=== PATIENT | female | born 1975 | race Asian ===

== ENCOUNTER → 2016-09-02 | Outpatient (CLI) | payer BC ==
[~2016-09-02] MED LIST: PRENTAB26 PO
--- NOTE | 2016-09-02 13:22 | Discharge Instructions ---
Discharge Instructions Procedure Procedure Date: Sep 02, 2016. Reason for visit: Right Calcs. Discharge Discharge Date: Sep 02, 2016. Discharge Diagnosis: status post breast biopsy Instructions Activity Recommendations: Additional Limitations (see below) Return to School/Work: no limitations Recommended Home Diet: No Limitations Provider Instructions: ACTIVITY RECOMMENDATIONS: * No lifting, pushing, pulling or exercising the affected side for three days. RETURN TO SCHOOL/WORK: * You may return to work/school after the procedure, but do not perform any strenuous activities for 24 to 48 hours. MEDICATIONS: * Tylenol (two 325 mg) every four to six hours if needed for mild pain (if not allergic to Tylenol). DIET: * Resume previous diet. SPECIAL CARE INSTRUCTIONS: * Keep biopsy site dry for 24 hours. May shower after 24 hours, but do not soak (bathe) incision. * May remove Tegaderm (plastic patch) tomorrow AFTER showering. * Leave the steri-strips on for one week. Allow the steri-strips to fall off by themselves. If not off after one week, you may remove them. You may place a Bandaid crosswise over the strips, if desired. * Apply ice 10 minutes on and 10 minutes off as needed. * Wear a bra at bedtime to sleep more comfortably for 2-3 days. * Your referring physician should have the results after approximately 5 to 7 business days. * Call for unusual bleeding, fever, drainage, etc or if you have any questions call during normal business hours or after hours call Dr Fan, . FOLLOW UP VISIT: Follow-up with Referring Physician as scheduled. Allergies Coded Allergies: Alcohol (Verified Allergy, Unknown, 10/03/09) Vicente Zuleta Recommendations: Call your doctor if: * Temperature above 101 degrees * Pain not relieved by pain medicine ordered * There is increased drainage or redness from any incision * You have any unanswered questions or concerns. Your Doctors Instructions noted above were prepared by provider Carine Fan. Patient Signature Section: Patient Instructions Signature Page Shwetha Horvath Patient (or Guardian) Signature/Date: I have read and understand the instructions given to me by my caregivers. Caregiver/RN/Doctor Signature/Date: The above-named patient and/or guardian has received patient instructions on this date. + Original Patient Signature Page (only) stays with chart. Please make copy for patient.
--- NOTE | 2016-09-02 13:45 | MAMMOGRAPHY REPORT ---
THIS REPORT HAS BEEN AMENDED. STEREOTACTIC GUIDED BIOPSY RIGHT BREAST: 09/02/2016 CLINICAL HISTORY: Indeterminate calcifications in the right upper outer quadrant. PATIENT CONSENT: The procedure, risks, benefits, and alternatives of stereotactic biopsy with clip p lacement were discussed with the patient, and verbal and written consent was obtained. A timeout wa s performed immediately prior to the procedure. PROCEDURE DESCRIPTION: With stereotactic guidance, aseptic technique, and lidocaine as a local anest hetic (1% lidocaine to anesthetize the skin and 1% lidocaine with epinephrine to anesthetize the sander per tissues), the area of concern was sampled multiple times with a 9-gauge vacuum-assisted biopsy n eedle (Suros Eviva petite). The path of approach was lateral. The specimen radiograph demonstrates calcifications to be present in the samples. A metallic marker clip was placed at the biopsy site. This was confirmed on postprocedure mammograms. Direct pressure was applied at the biopsy site an d hemostasis was readily achieved. The patient tolerated the procedure without complication. She w as given wound care instructions. COMPARISON: Comparison is made to exams dated: 08/27/2016 mammogram and 08/11/2016 mammogram - [facility]. IMPRESSION: STEREOTACTIC GUIDED BIOPSY Stereotactic biopsy of indeterminate calcifications in the right upper outer quadrant, with clip momo cement. The patient will receive pathology results from her referring physician. Carine Fan M.D. ah/:09/02/2016 13:26:36 Attending Technologist: Suzanne SHARIF(Jack)(M), [facility] Job Setter Honing: Jamila Fung, [facility] AMENDMENT: 09/15/2016 Carine Fan M.D. Pathology results from stereotactic biopsy of right breast calcifications was reviewed on 09/15/2016. The pathology shows benign breast tissue with microcalcifications, which is concordant with the im aging appearance. Recommend follow-up diagnostic mammograms of the left breast in 6 months to confi rm stability of the faint calcifications in the left upper outer quadrant.
--- NOTE | 2016-09-02 16:40 | MAMMOGRAPHY REPORT ---
UNILATERAL RIGHT DIGITAL DIAGNOSTIC MAMMOGRAM: 09/02/2016 CLINICAL HISTORY: Status post stereotactic biopsy of right upper outer quadrant calcifications. TECHNIQUE: Postprocedural right CC, XCCL, and ML views were obtained. COMPARISON: Comparison is made to exams dated: 08/27/2016 mammogram and 08/11/2016 mammogram - [facility]. BREAST COMPOSITION: The tissue of the right breast is extremely dense, which lowers the sensitivity of mammography. FINDINGS: A new biopsy marker clip is noted at the site of the biopsied calcifications in the right upper outer quadrant. No significant postbiopsy hematoma is seen. IMPRESSION: POST PROCEDURE IMAGING FOR MARKER PLACEMENT New biopsy marker clip status post stereotactic biopsy of right upper outer quadrant calcifications. Pathology results are pending. Approximately 10% of breast cancers are not detected with mammography. A negative mammographic repor t should not delay biopsy if a clinically suggestive mass is present. Carine Fan M.D. ah/:09/02/2016 13:45:07 Machine Wood Sander: Jamila Fung, [facility] BI-RADS Code: Post Procedure Imaging For Marker Placement
== END | disposition home or self-care (01) ==
LOC: C.MAMM 12:49
PROVIDERS: ATTEND Obstetrics & Gynecology
DX: R92.1 Mammographic calcification found on diagnostic imaging of breast (principal)

== ENCOUNTER → 2017-01-10 | Outpatient (CLI) | payer BC | END | disposition home or self-care (01) | LOC: C.PAPS 12:22 | PROVIDERS: ATTEND Obstetrics & Gynecology | DX: Z01.419 Encounter for gynecological examination (general) (routine) without abnormal findings (principal) ==

== ENCOUNTER → 2017-05-13 | Outpatient (CLI) | payer BC ==
--- NOTE | 2017-05-13 13:42 | MAMMOGRAPHY REPORT ---
UNILATERAL LEFT DIGITAL DIAGNOSTIC MAMMOGRAM TOMOSYNTHESIS WITH CAD: 05/13/2017 CLINICAL HISTORY: History of benign stereotactic biopsy of right breast calcifications August 2016, here for short interval follow-up of benign-appearing left breast calcifications. TECHNIQUE: Breast tomosynthesis in addition to standard 2D mammography was performed. Current study was also evaluated with a Computer Aided Detection (CAD) system. Left CC and MLO to Alecia tomosynthes is images and spot magnification left CC and ML views were obtained. COMPARISON: Comparison is made to exams dated: 09/02/2016 stereotactic biopsy, 09/02/2016 mammogram, mammogram, and 08/11/2016 mammogram - [facility]. BREAST COMPOSITION: The tissue of the left breast is extremely dense, which lowers the sensitivity o f mammography. FINDINGS: Spot magnification views of the left breast again demonstrate loosely grouped punctate doni gn-appearing calcifications within the left upper outer quadrant. The calcifications are stable on s pot magnification views dating back to the 08/27/2016 exam. Additionally, the calcifications appear similar to the biopsied calcifications in the right breast which yielded benign pathology. Given the benign morphology and stability, the calcifications are considered benign. The remainder of the left breast is stable compared to prior exams, without suspicious masses, calcif ications, or areas of architectural distortion noted. IMPRESSION: ACR BI-RADS CATEGORY 2: BENIGN Punctate benign-appearing calcifications in the left upper outer quadrant are stable, and are conside red benign given the stability and benign morphology. There is no mammographic evidence of malignanc y. Return to annual mammogram screening schedule is recommended, due July 2017. The patient has been verbally notified of the results. Approximately 10% of breast cancers are not detected with mammography. A negative mammographic report should not delay biopsy if a clinically suggestive mass is present. Carine Fan M.D. /:05/13/2017 11:34:56 Supervisor Fertilizer: Jamila SHARIF(Jack)(M), [facility] letter sent: Normal 1/2 BI-RADS Code: ACR BI-RADS Category 2: Benign
== END | disposition home or self-care (01) ==
LOC: C.MAMM 10:47
PROVIDERS: ATTEND Obstetrics & Gynecology
DX: Z09 Encounter for follow-up examination after completed treatment for conditions other than malignant neoplasm (principal); R92.1 Mammographic calcification found on diagnostic imaging of breast

== ENCOUNTER → 2017-07-20 | Outpatient (CLI) | payer BC ==
[2017-07-20 15:17] LABS: THYROID STIMULATING HORMONE 1.9 uIu/ml (0.300-4.500)
== END | disposition home or self-care (01) ==
LOC: C.LAB1850 11:21
PROVIDERS: ATTEND Obstetrics & Gynecology
DX: N93.9 Abnormal uterine and vaginal bleeding, unspecified (principal)

== ENCOUNTER → 2017-08-25 | Outpatient (CLI) | payer BC ==
--- NOTE | 2017-08-26 12:52 | MAMMOGRAPHY REPORT ---
BILATERAL DIGITAL SCREENING MAMMOGRAM TOMOSYNTHESIS WITH CAD: 08/25/2017 CLINICAL HISTORY: Routine screening. Patient has no complaints. TECHNIQUE: Breast tomosynthesis in addition to standard 2D mammography was performed. Current study was also evaluated with a Computer Aided Detection (CAD) system. COMPARISON: Comparison is made to exams dated: 05/13/2017 mammogram, 09/02/2016 mammogram, 09/02/2016 love reotactic biopsy, 08/27/2016 mammogram, and 08/11/2016 mammogram - [facility]. BREAST COMPOSITION: The tissue of both breasts is extremely dense, which lowers the sensitivity of m ammography. FINDINGS: No suspicious masses, calcifications, or areas of architectural distortion are noted in ei ther breast. There has been no significant interval change compared to prior exams. Benign-appearing calcifications and an associated biopsy marker clip in the right upper outer quadrant are stable com pared to prior exams, and yielded benign pathology on the stereotactic biopsy. Scattered benign-appe aring left breast calcifications are also stable. A linear scar marker denotes a scar in the right u pper outer breast. IMPRESSION: ACR BI-RADS CATEGORY 2: BENIGN There is no mammographic evidence of malignancy. A 1 year screening mammogram is recommended. The pa tient will receive written notification of the results. Approximately 10% of breast cancers are not detected with mammography. A negative mammographic report should not delay biopsy if a clinically suggestive mass is present. Carine Fan M.D. ah/:08/25/2017 15:57:03 Hotel Supplies Salesperson: Viola SHARIF(Jack)([place]), [facility] letter sent: Normal 1/2 BI-RADS Code: ACR BI-RADS Category 2: Benign
== END | disposition home or self-care (01) ==
LOC: C.MAMM 14:40
PROVIDERS: ATTEND Obstetrics & Gynecology
DX: Z12.31 Encounter for screening mammogram for malignant neoplasm of breast (principal)

== ENCOUNTER 2019-05-11 09:37 | Observation (INO) ==
--- OUTSIDE RECORDS SUMMARY | 2019-05-11 09:40 | External Medical Summary | Continuity of Care Document ---
:1975 Author Name Shady Ayala, Provider Address Unavailable Unavailable , Care Team Providers Name Role Phone Unavailable Unavailable Unavailable DESTINI FELIPE Unavailable Unavailable Unavailable Unavailable Unavailable Problems Atopic dermatitis (691.8) (L20.9) Abnormal finding on mammography (793.80) (R92.8) Breast pain (611.71) (N64.4) Abnormal uterine bleeding (AUB) (626.9) (N93.9) Well woman exam with routine gynecological exam (V72.31) (Z0 1.419) Inadequate cervical cytology sample (795.08) (R87.615) Allergies and Adverse Reactions No Known Drug Allergies (Allergy) Medications No Reported Medications , M.D. Refills: 0 Procedures Procedures not documented Immunizations Immunizations not documented Plan of Treatment Planned Observations Mammo SCREENING BILATERAL JOHN PAUL Start: 30-Aug-2019 Intent Results No Known Results Results not documented Encounters Appointment; Dominique León M.D. 08-Dec-2018 11:10 Encounter Diagnosis: Problem not documented Appointment; Dominique León M.D. 30-Nov-2018 9:20 Encounter Diagnosis: Problem not documented Appointment; Dominique León M.D. 20-Jul-2017 10:20 Encounter Diagnosis: Problem not documented Appointment; Dominique León M.D. 20-Jul-2017 10:20 Encounter Diagnosis: Problem not documented
[2019-05-11] MEDS ORDERED: ONDANSETRON INJ 2 MG/ML 2 ML VIAL IV STA (10:28)
[2019-05-11] MEDS ORDERED: MoRPHine SULFATE 4 MG/ML 1 ML CARP\\VIAL IV STA (10:28)
[2019-05-11] MEDS ORDERED: SODIUM CHLORIDE 0.9% 1000ML 1,000 ML IV SCH (10:29)
--- NOTE | 2019-05-11 10:34 | Emergency Department Note ---
History of Present Illness General Chief complaint: Abdominal Pain Stated complaint: RLQ PAIN Time Seen by Provider: 05/11/19 10:11 History of Present Illness Maximum Pain Intensity: 9 Patient is a healthy 43-year-old female who was referred to the emergency department by [facility] for evaluation of right lower quadrant abdominal pain that started last evening. Patient reports that she was feeling well and was in her usual state of health until around 10:00 last evening when she began to feel generally uncomfortable. It did not keep her from sleeping however. She woke this morning from sleep around 7:00 a sharp pain in the right lower quadrant that does not radiate. She states it is constant in nature and presently rates it a 9/10. She states that she feels better laying curled up with her knees and hips flexed and worse when her legs are straight. She notes primarily pain, with no associated nausea or vomiting. She denies any urinary symptoms. Last bowel movement was this morning was possible for her without blood or diarrhea. There was no change in her abdominal pain with the bowel movement. She was seen on campus and referred to the emergency department for possible appendicitis. Patient's last menstrual period was normal for her and ended 2 days ago. Home Medications Home Medications Medication Instructions Recorded Confirmed Type No Known Home Medications 05/11/19 05/11/19 History Allergies Allergy/AdvReac Type Severity Reaction Status Date / Time alcohol Allergy Unknown Verified 05/11/19 10:31 Past Med/Surg History Medical History No significant medical problems (Chronic) Surgical History No history of previous surgery (Chronic) Social History marital status: Current Living Situation: Family current occupational status: employed Feels Safe at Home: Yes Smoking Status: Never smoker Review of Systems A total of 10 systems reviewed and were otherwise negative Physical Exam Vital Signs Vital Signs - 24 hr 05/11/19 09:43 05/11/19 12:45 05/11/19 13:45 Temperature 36.9 C Temperature Source Oral Sepsis Recent Fever Within 48 Hours No Sepsis New/Unexplained Change in Mental Status No Sepsis Action Taken by Nursing No Action Required Pulse Rate 82 Pulse Rate [Apical] Pulse Rate [Right Finger] 66 90 Pulse Rhythm [Apical] Pulse Rhythm [Right Finger] Regular Pulse Strength [Apical] Pulse Strength [Right Finger] Normal Respiratory Rate 20 20 16 Respiratory Effort / Characteristics Non-Labored Spontaneous Respiratory Depth Normal Respiratory Pattern Regular Blood Pressure 146/90 H Blood Pressure [Right Arm] 130/75 145/80 H Blood Pressure Mean 108 Blood Pressure Mean [Right Arm] 93 101 Blood Pressure Position [Right Arm] Lying Pulse Oximetry 100 99 Oxygen Delivery Method Room Air Room Air Room Air 05/11/19 13:55 Temperature 37.3 C Temperature Source Oral Sepsis Recent Fever Within 48 Hours Sepsis New/Unexplained Change in Mental Status Sepsis Action Taken by Nursing Pulse Rate Pulse Rate [Apical] 82 Pulse Rate [Right Finger] Pulse Rhythm [Apical] Regular Pulse Rhythm [Right Finger] Pulse Strength [Apical] Normal Pulse Strength [Right Finger] Respiratory Rate 16 Respiratory Effort / Characteristics Non-Labored Spontaneous Respiratory Depth Normal Respiratory Pattern Regular Blood Pressure Blood Pressure [Right Arm] 114/75 Blood Pressure Mean Blood Pressure Mean [Right Arm] 88 Blood Pressure Position [Right Arm] Lying Pulse Oximetry 99 Oxygen Delivery Method Room Air CONSTITUTIONAL: Patient is a well-appearing 43-year-old female who is awake and alert and in no acute distress. EYES: Pupils equal, round, reactive to light and accommodation. EOMs intact without nystagmus. Sclera are anicteric. ENT: Tympanic membranes intact, with normal landmarks. External canals are clear. Oral and nasopharynx are clear. Mucous membranes are moist, no lesions, tongue and gums appear normal. CARDIOVASCULAR: Regular rate and rhythm, with normal S1 and S2, no murmur or gallop or rub is heard. Peripheral pulses easily palpable. RESPIRATORY: Breath sounds equal and clear to auscultation without wheezes, rales, or rhonchi heard. Full and equal chest expansion without accessory muscle use or retractions. ABDOMEN: Bowel sounds are present. Abdomen is soft, scaphoid, tender to percussion over the right lower quadrant. She is tender to palpation in the right lower quadrant with voluntary guarding, no rebound or referred rebound tenderness. INTEGUMENTARY: No lesions or rash, normal skin turgor. LYMPH: No lymphadenopathy. Course The patient was seen and assessed as above. Old records were reviewed. She was referred to the emergency department from an outpatient walk-in clinic for evaluation of right lower quadrant abdominal pain. IV lock was initiated. Laboratory studies were collected. CBC with differential, BMP, urinalysis and urine test were performed. Patient was made aware that she should not have anything to eat or drink while in the emergency department. She was agreeable to medication for discomfort and was given morphine 4 mg and Zofran 4 mg IV. She was given a liter bolus of normal saline solution. CT scan of the abdomen and pelvis with IV contrast was ordered. Laboratory studies noted a slightly elevated white count at 13,600 with left shift and bandemia noted. H&H is normal. Electrolytes and renal functions are within normal limits. Urinalysis notes trace blood and 5-10 epithelial cells, otherwise is clear. Urine test is negative. CT scan of the abdomen and pelvis noted the appendix to be distended and fluid- filled measuring up to 10 mm in thickness, appendiceal wall is thickened and hyperemic with periappendiceal inflammation and fluid. Findings are consistent with acute appendicitis. No organized fluid collection is seen to indicate abscess. All laboratory and diagnostic imaging studies were discussed with the patient and her spouse. She was made aware that the surgical team would be evaluating her. Laboratory and diagnostic imaging studies were discussed with the surgical team, Dr. Newman and Naatly Simon PA-C, and they will see the patient with plans for surgical intervention. Administered Medications Ioversol (Optiray 320 100ml) 93 ml IV ONCE PRN PRN Reason: Interaction Checking Stop: 05/15/19 12:31 Last Admin: 05/11/19 12:33 Dose: 93 ml Documented by: [id number] Discontinued Medications Sodium Chloride (Nss 1000ml) 1,000 mls @ 999 mls/hr IV .Q1H1M PRACHI Stop: 05/11/19 11:29 Last Infusion: 05/11/19 12:21 Dose: 0 mls/hr Documented by: [id number] Admin: 05/11/19 11:20 Dose: 999 mls/hr Documented by: [id number] Morphine Sulfate (Morphine Sulfate) 4 mg IV NOW STA Stop: 05/11/19 10:29 Last Admin: 05/11/19 11:29 Dose: Not Given Documented by: [id number] Ondansetron HCl (Zofran) 4 mg IV NOW STA Stop: 05/11/19 10:29 Last Admin: 05/11/19 11:20 Dose: 4 mg Documented by: [id number] Medical Decision Making Differential Diagnosis Differential diagnoses entertained included UTI, pyelonephritis, renal colic, appendicitis, shingles, musculoskeletal strain, hernia, , ectopic , PID, tubo-ovarian abscess, ovarian cyst, ovarian torsion, among others. Medical Records Attestation: I reviewed the patient's medical records. Home Medications Current Medication List: was personally reviewed by me Laboratory Data Attestation: I reviewed the patient's lab results. Result diagrams: 05/11/19 11:12 05/11/19 11:12 Lab Results 05/11/19 05/11/19 05/11/19 Range/Units 10:05 10:05 10:05 WBC (4.8-10.8) K/uL RBC (4.2-5.4) M/uL Hgb (12.0-16.0) g/dL Hct (37-47) % MCV (80-100) fL MCH (25-34) pg MCHC (32-36) g/dL RDW Std Deviation (36.4-46.3) fL RDW Coeff of Pradeep (11.5-14.5) % Plt Count (130-400) K/uL MPV (7.4-10.4) fL Immature Gran % (Auto) % Neut % (Auto) % Lymph % (Auto) % Owen % (Auto) % Eos % (Auto) % Baso % (Auto) % Immature Gran # (Auto) (0.00-0.02) K/uL Neut # (Auto) (1.4-6.5) K/uL Lymph # (Auto) (1.2-3.4) K/uL Owen # (Auto) (0.11-0.59) K/uL Eos # (Auto) (0-0.5) K/uL Baso # (Auto) (0-0.2) K/uL Sodium (136-145) mmol/L Potassium (3.5-5.1) mmol/L Chloride (98-107) mmol/L Carbon Dioxide (21-32) mmol/L Anion Gap (3-11) BUN (7-18) mg/dl Creatinine (0.6-1.2) mg/dl Est Cr Clr Drug Dosing ml/min Est GFR ( Amer) Est GFR (Non-Af Amer) BUN/Creatinine Ratio (10-20) Glucose (70-99) mg/dl Calcium (8.5-10.1) mg/dl Urine Color Yellow Urine Appearance Clear (Clear) Urine pH 8.0 H (4.5-7.5) Ur Specific [employer] 1.011 (1.000-1.030) Urine Protein Negative (Negative) Urine Glucose (UA) Negative (Negative) Urine Ketones Negative (Negative) Urine Blood Trace H (Negative) Urine Nitrite Negative (Negative) Urine Bilirubin Negative (Negative) Urine Urobilinogen Negative (Negative) Ur Leukocyte Esterase Negative (Negative) Urine WBC (Auto) 0 (0-5) /hpf Urine RBC (Auto) 0-4 (0-4) /hpf U Hyaline Cast (Auto) 0 (0-5) /lpf U Epithel Cells (Auto) 5-10 H (0-5) /lpf Urine Bacteria (Auto) Negative (Negative) Urine Test Negative (Negative) POC Ur Test Cancelled 05/11/19 05/11/19 Range/Units 11:12 11:12 WBC 13.62 H (4.8-10.8) K/uL RBC 4.40 (4.2-5.4) M/uL Hgb 13.4 (12.0-16.0) g/dL Hct 40.1 (37-47) % MCV 91.1 (80-100) fL MCH 30.5 (25-34) pg MCHC 33.4 (32-36) g/dL RDW Std Deviation 44.7 (36.4-46.3) fL RDW Coeff of Pradeep 13.5 (11.5-14.5) % Plt Count 257 (130-400) K/uL MPV 10.0 (7.4-10.4) fL Immature Gran % (Auto) 0.2 % Neut % (Auto) 86.9 % Lymph % (Auto) 7.4 % Owen % (Auto) 5.3 % Eos % (Auto) 0.1 % Baso % (Auto) 0.1 % Immature Gran # (Auto) 0.03 H (0.00-0.02) K/uL Neut # (Auto) 11.84 H (1.4-6.5) K/uL Lymph # (Auto) 1.01 L (1.2-3.4) K/uL Owen # (Auto) 0.72 H (0.11-0.59) K/uL Eos # (Auto) 0.01 (0-0.5) K/uL Baso # (Auto) 0.01 (0-0.2) K/uL Sodium 140 (136-145) mmol/L Potassium 3.7 (3.5-5.1) mmol/L Chloride 106 (98-107) mmol/L Carbon Dioxide 26 (21-32) mmol/L Anion Gap 8.0 (3-11) BUN 8 (7-18) mg/dl Creatinine 0.67 (0.6-1.2) mg/dl Est Cr Clr Drug Dosing 89.6 ml/min Est GFR ( Amer) 124.8 Est GFR (Non-Af Amer) 107.7 BUN/Creatinine Ratio 12.0 (10-20) Glucose 82 (70-99) mg/dl Calcium 8.7 (8.5-10.1) mg/dl Urine Color Urine Appearance (Clear) Urine pH (4.5-7.5) Ur Specific [employer] (1.000-1.030) Urine Protein (Negative) Urine Glucose (UA) (Negative) Urine Ketones (Negative) Urine Blood (Negative) Urine Nitrite (Negative) Urine Bilirubin (Negative) Urine Urobilinogen (Negative) Ur Leukocyte Esterase (Negative) Urine WBC (Auto) (0-5) /hpf Urine RBC (Auto) (0-4) /hpf U Hyaline Cast (Auto) (0-5) /lpf U Epithel Cells (Auto) (0-5) /lpf Urine Bacteria (Auto) (Negative) Urine Test (Negative) POC Ur Test Imaging Data Attestation: I personally reviewed and interpreted this imaging study as follows: Radiologist's Impression: CT SCAN OF THE ABDOMEN AND PELVIS WITH IV CONTRAST CLINICAL HISTORY: Right lower quadrant abdominal pain. COMPARISON STUDY: Renal ultrasound dated 01/26/2018. TECHNIQUE: Following the IV administration of 93 cc of Optiray 320, CT scan of the abdomen and pelvis is performed from the lung bases to the proximal femora. Images are reviewed in the axial, sagittal, and coronal planes. IV contrast was administered without complication. A dose lowering technique was utilized adhering to the principles of ALARA. CT DOSE: 297.36 mGycm FINDINGS: Lung bases: The heart is normal in size and without pericardial effusion. The lung bases are clear. Liver: The contrast-enhanced liver is normal in size, contour, and attenuation. There is no intrahepatic biliary ductal dilatation. The hepatic veins and portal veins are patent. Gallbladder: Unremarkable. Spleen: Normal in size and attenuation. Pancreas: Unremarkable. Adrenal glands: Unremarkable. Kidneys: The contrast enhanced kidneys are normal in size and without hydronephrosis. The kidneys enhance and excrete symmetrically. Abdominal vasculature: The abdominal aorta is normal in course and caliber. Bowel: There is no bowel obstruction. The appendix is distended and fluid- filled, measuring up to 10 mm in thickness. The appendiceal wall is thickened and hyperemic and there is periappendiceal inflammation and fluid. Findings are consistent with acute appendicitis. No organized fluid collection is seen to indicate abscess. Peritoneum: There is no intraperitoneal free air or abdominal ascites. There is a small fat-containing umbilical hernia. Lymphadenopathy: None. Pelvic viscera: The bladder, uterus, and adnexa are normal as imaged. There are small bilateral ovarian follicles. Trace free fluid is noted in the cul-de-sac. Skeletal structures: No lytic or blastic lesions are seen. IMPRESSION: 1. Findings are consistent with acute appendicitis. There is no evidence of abscess or perforation. 2. Trace nonspecific free fluid is seen in the cul-de-sac. Blood Pressure Blood Pressure Findings: Normal blood pressure Blood Pressure Disposition: did not require urgent referral MDM Narrative See ED Course. Impression & Plan Acute appendicitis Discharge Plan Visit Data Chief Complaint: Abdominal Pain Stated Complaint: RLQ PAIN ED Provider: Jered Esteves ED Midlevel Provider: Stanton Ro Discharge Problem: Acute appendicitis Patient Disposition: Being Evaluated by Surgeon Discharge Instructions Interventions: ED Discharge Assessment Last Done: 05/11/19 13:46 Discharge Problem: Acute appendicitis Qualifiers: Acute appendicitis type: with localized peritonitis Appendicitis gangrene presence: without gangrene Appendicitis perforation presence: without perforation Appendicitis abscess presence: without abscess Qualified Code(s): K35.30 - Acute appendicitis with localized peritonitis, without perforation or gangrene
[2019-05-11 11:32] LABS: Basophils # (auto) 0.01 K/uL (0-0.2); Basophils % (auto) 0.1 %; Eosinophils # (auto) 0.01 K/uL (0-0.5); Eosinophils % (auto) 0.1 %; Hematocrit (blood only) 40.1 % (37-47); Hemoglobin 13.4 g/dL (12.0-16.0); Immature Granulocytes # (auto) 0.03 K/uL (0.00-0.02); Immature Granulocytes % (auto) 0.2 %; Lymphocytes # (auto) 1.01 K/uL (1.2-3.4); Lymphocytes % (auto) 7.4 %; Mean Corpuscular Hgb Conc 33.4 g/dL (32-36); Mean Corpuscular Volume 91.1 fL (80-100); Monocytes # (auto) 0.72 K/uL (0.11-0.59); Monocytes % (auto) 5.3 %; Neutrophils # (auto) 11.84 K/uL (1.4-6.5); Neutrophils % (auto) 86.9 %; Platelet Count 257 K/uL (130-400); RDW Coefficient of Variation 13.5 % (11.5-14.5); RDW Standard Deviation 44.7 fL (36.4-46.3); White Blood Count 13.62 K/uL (4.8-10.8)
[2019-05-11 11:41] LABS: Pregnancy Test, Urine Negative (Negative)
[2019-05-11 11:43] LABS: Appearance Urine Clear (Clear); Bacteria Urine Automated Negative (Negative); Bilirubin Urine Negative (Negative); Blood Urine Trace (Negative); Cast Urine Automated 0 /lpf (0-5); Color Urine Yellow; Glucose Urine UA Negative (Negative); Ketones Urine Negative (Negative); Leukocyte Esterase Urine Negative (Negative); Nitrite Urine Negative (Negative); Protein Urine Negative (Negative); RBC Urine Automated 0-4 /hpf (0-4); Specific Gravity Urine 1.011 (1.000-1.030); Urobilinogen Urine Negative (Negative); WBC Urine Automated 0 /hpf (0-5)
[2019-05-11 11:53] LABS: Calcium 8.7 mg/dl (8.5-10.1); Creatinine Clr Calc Pharmacy 89.6 ml/min; Est GFR (African American) 124.8; Est GFR (Non-African American) 107.7; Potassium 3.7 mmol/L (3.5-5.1)
[2019-05-11] MEDS ORDERED: IOVERSOL 100ml IV PRN (12:32)
--- NOTE | 2019-05-11 12:56 | CT Scan Report ---
CT SCAN OF THE ABDOMEN AND PELVIS WITH IV CONTRAST CLINICAL HISTORY: Right lower quadrant abdominal pain. COMPARISON STUDY: Renal ultrasound dated 01/26/2018. TECHNIQUE: Following the IV administration of 93 cc of Optiray 320, CT scan of the abdomen and pelvi s is performed from the lung bases to the proximal femora. Images are reviewed in the axial, sagittal , and coronal planes. IV contrast was administered without complication. A dose lowering technique wa s utilized adhering to the principles of ALARA. CT DOSE: 297.36 mGycm FINDINGS: Lung bases: The heart is normal in size and without pericardial effusion. The lung bases are clear. Liver: The contrast-enhanced liver is normal in size, contour, and attenuation. There is no intrahepa tic biliary ductal dilatation. The hepatic veins and portal veins are patent. Gallbladder: Unremarkable. Spleen: Normal in size and attenuation. Pancreas: Unremarkable. Adrenal glands: Unremarkable. Kidneys: The contrast enhanced kidneys are normal in size and without hydronephrosis. The kidneys enh ance and excrete symmetrically. Abdominal vasculature: The abdominal aorta is normal in course and caliber. Bowel: There is no bowel obstruction. The appendix is distended and fluid-filled, measuring up to 10 mm in thickness. The appendiceal wall is thickened and hyperemic and there is periappendiceal inflam mation and fluid. Findings are consistent with acute appendicitis. No organized fluid collection is s een to indicate abscess. Peritoneum: There is no intraperitoneal free air or abdominal ascites. There is a small fat-containin g umbilical hernia. Lymphadenopathy: None. Pelvic viscera: The bladder, uterus, and adnexa are normal as imaged. There are small bilateral ovari an follicles. Trace free fluid is noted in the cul-de-sac. Skeletal structures: No lytic or blastic lesions are seen. IMPRESSION: 1. Findings are consistent with acute appendicitis. There is no evidence of abscess or perforation. 2. Trace nonspecific free fluid is seen in the cul-de-sac. Electronically signed by: Lee Farr M.D. 05/11/2019 12:54 PM
--- NOTE | 2019-05-11 13:30 | Surgery Consultation ---
Date of Consultation May 11, 2019 Assessment & Plan (1) Acute appendicitis: This is a 43y F who presented to the ED with abdominal pain and CT scan concerning for early acute appendicitis. Will admit to general surgery and book patient for a laparoscopic appendectomy. Keep NPO with IVF. Will ask anesthesia to give patient IV abx pre-op in the OR. Patient seen and examined with Dr. Newman. Patient examined and above-noted procedure explained to the patient and her including complications of laparoscopic appendectomy injury to other organs conversion to open and they would like to proceed accordingly summary we will proceed with laparoscopic appendectomy possible open for acute appendicitis History of Present Illness History of Present Illness This is a 43y F who presents to the [facility] ED on 05/11/19 with complaints of lower abdominal pain. The patient endorses having some mild abdominal discomfort last night, but woke up this morning with progressive worsening of the pain. She had a BM this AM that did not relieve her symptoms. She scheduled an appointment to be seen by her PCP and because her exam was concerning for appendicitis they recommended she go to the ED for CT scan. In the ED patients WBC 13.[address] scan revealed concern for acute appendicitis without abscess or perforation. The patient denies nausea/vomiting, abdominal distention, fever or chills. Her last meal was yesterday for dinner. Allergies Allergy/AdvReac Type Severity Reaction Status Date / Time alcohol Allergy Unknown Verified 05/11/19 10:31 Home Medications Home Medications Medication Instructions Recorded Confirmed Type No Known Home Medications 05/11/19 05/11/19 History Patient History Medical History No significant medical problems (Chronic) Surgical History No history of previous surgery (Chronic) Social History marital status: Current Living Situation: Family current occupational status: employed Feels Safe at Home: Yes Smoking Status: Never smoker Review of Systems Constitutional: no fever and no chills Gastrointestinal: + abdominal pain (lower abdominal pain, primarily right lower quadrant); no bloating, no nausea, no vomiting and no change in bowel habits Physical Exam Physical Exam: awake/alert Constitutional: well developed and well nourished; no acute distress Respiratory: normal respiratory effort Cardiovascular: Rate/Rhythm: regular rate Gastrointestinal (Abdomen): Inspection/Auscultation: abdomen not distended Percussion/Palpation: + abdomen tender (to palpation of RLQ), + guarding and abdomen soft Results & Data Vital Signs (Past 12 Hours) Vital Signs Temp Pulse Pulse Resp BP BP Pulse Ox 05/11/19 12:45 66 20 130/75 05/11/19 09:43 36.9 C 82 20 146/[address] SCAN OF THE ABDOMEN AND PELVIS WITH IV CONTRAST CLINICAL HISTORY: Right lower quadrant abdominal pain. COMPARISON STUDY: Renal ultrasound dated 01/26/2018. TECHNIQUE: Following the IV administration of 93 cc of Optiray 320, CT scan of the abdomen and pelvis is performed from the lung bases to the proximal femora. Images are reviewed in the axial, sagittal, and coronal planes. IV contrast was administered without complication. A dose lowering technique was utilized adhering to the principles of ALARA. CT DOSE: 297.36 mGycm FINDINGS: Lung bases: The heart is normal in size and without pericardial effusion. The lung bases are clear. Liver: The contrast-enhanced liver is normal in size, contour, and attenuation. There is no intrahepatic biliary ductal dilatation. The hepatic veins and portal veins are patent. Gallbladder: Unremarkable. Spleen: Normal in size and attenuation. Pancreas: Unremarkable. Adrenal glands: Unremarkable. Kidneys: The contrast enhanced kidneys are normal in size and without hydronephrosis. The kidneys enhance and excrete symmetrically. Abdominal vasculature: The abdominal aorta is normal in course and caliber. Bowel: There is no bowel obstruction. The appendix is distended and fluid- filled, measuring up to 10 mm in thickness. The appendiceal wall is thickened and hyperemic and there is periappendiceal inflammation and fluid. Findings are consistent with acute appendicitis. No organized fluid collection is seen to indicate abscess. Peritoneum: There is no intraperitoneal free air or abdominal ascites. There is a small fat-containing umbilical hernia. Lymphadenopathy: None. Pelvic viscera: The bladder, uterus, and adnexa are normal as imaged. There are small bilateral ovarian follicles. Trace free fluid is noted in the cul-de-sac. Skeletal structures: No lytic or blastic lesions are seen. IMPRESSION: 1. Findings are consistent with acute appendicitis. There is no evidence of abscess or perforation. 2. Trace nonspecific free fluid is seen in the cul-de-sac. Electronically signed by: Lee Farr M.D. 05/11/2019 12:54 PM PG Care Time/CCT Total # of Minutes Spent Total Time Spent with Patient: Total time spent is greater than 50% in coordination of care (as documented) at patient's floor/unit and/or counseling patient: (1) Acute appendicitis Acute appendicitis type: with localized peritonitis Appendicitis abscess presence: without abscess Appendicitis gangrene presence: without gangrene Ap pendicitis perforation presence: without perforation Qualified Code(s): K35.30 - Acute appendicitis with localized peritonitis, without perforation or gangrene
[2019-05-11] MEDS ORDERED: MIDAZOLAM HCL 1 MG/ML 2ML VIAL ONE (13:45)
[2019-05-11] MEDS ORDERED: fentaNYL citrate 100 MCG/2 ML VIAL ONE ×2 (13:45→14:50)
[2019-05-11] MEDS ORDERED: LIDOCAINE/EPINEPHRINE 1% 20 ML VIAL ONE (13:47)
[2019-05-11] MEDS ORDERED: LIDOCAINE HCL 2% 2 ML VIAL/AMP(20MG/ML) INFIL ONE (13:47)
--- NOTE | 2019-05-11 13:52 | Anesthesiology Consultation ---
Date of Service May 11, 2019 Assessment & Plan (1) Encounter for pre-operative examination: Chart Review Chart Review: Acceptable Risk for Surgery and Patient NOT seen in Pre Admission Testing Consults Requested none Proposed Anesthesia Risk / Benefits Reviewed With: PT / POA / Parent / Guardian, Accepts Plan and Informed Consent Obtained History Surgery Operation Date: 05/11/19 12:20 Proposed Procedures p Laparoscopic Appendectomy - Kalpesh Newman MD Height/Weight Height: 5 ft 3 in Weight: 54 kg Allergies Allergy/AdvReac Type Severity Reaction Status Date / Time alcohol Allergy Unknown Verified 05/11/19 10:31 Medications Home Medications Medication Instructions Recorded Confirmed Last Taken No Known Home Medications 05/11/19 05/11/19 Unknown Active Medications Generic Name Dose Route Start Last Admin Trade Name Freq PRN Reason Stop Dose Admin Ioversol 93 ml 05/11/19 12:32 05/11/19 12:33 Optiray 320 100ml IV 05/15/19 12:31 93 ml ONCE PRN Administration Interaction Checking NPO Date Last Intake of Fluids: 05/10/19 Time Last Intake of Fluids: 20:00 Date Last Intake of Solids: 05/10/19 Time Last Intake of Solids: 20:00 Past Medical History Medical History No significant medical problems (Chronic) Exercise / Class Metabolic Activity II 4-5 Yardwork/Stairs/Walk up hill Past Surgical History Surgical History No history of previous surgery (Chronic) Past Anesthesia History No Hx of Anesthesia Complications History of PONV No Hx of PONV and No Hx of Motion Sickness Social History Smoking Status: Never smoker Physical Exam Vital Signs Last Vital Signs Temp 37.3 C 05/11/19 13:55 Pulse 82 05/11/19 13:55 Resp 16 05/11/19 13:55 BP 114/75 05/11/19 13:55 Pulse Ox 99 05/11/19 13:55 ENMT Mouth: no dentition abnormality Thyromental Distance: > or= 3.5 Finger Breadths Mallampati Class: II Neck normal visual inspection Respiratory normal respiratory effort Auscultation: lungs clear to auscultation bilaterally Cardiovascular Rate/Rhythm: regular rate and regular rhythm Psychiatric Orientation: alert and oriented x 3 Testing Laboratory Results 05/11/19 11:12 05/11/19 11:12 Urine Color Yellow 05/11/19 10:05 Urine Appearance Clear (Clear) 05/11/19 10:05 Urine pH 8.0 (4.5-7.5) H 05/11/19 10:05 Ur Specific [employer] 1.011 (1.000-1.030) 05/11/19 10:05 Urine Protein Negative (Negative) 05/11/19 10:05 Urine Glucose (UA) Negative (Negative) 05/11/19 10:05 Urine Ketones Negative (Negative) 05/11/19 10:05 Urine Nitrite Negative (Negative) 05/11/19 10:05 Ur Leukocyte Esterase Negative (Negative) 05/11/19 10:05 Urine WBC (Auto) 0 /hpf (0-5) 05/11/19 10:05 Urine RBC (Auto) 0-4 /hpf (0-4) 05/11/19 10:05 U Hyaline Cast (Auto) 0 /lpf (0-5) 05/11/19 10:05 U Epithel Cells (Auto) 5-10 /lpf (0-5) H 05/11/19 10:05 Urine Bacteria (Auto) Negative (Negative) 05/11/19 10:05 Urine Test Negative (Negative) 05/11/19 10:05 05/11/19 05/11/19 10:05 10:05 Urine Test Negative POC Ur Test Cancelled
[2019-05-11] MEDS ORDERED: HYDROmorphone INJ 1 MG/ML SYRINGE IV PRN (14:15)
[2019-05-11] MEDS ORDERED: ONDANSETRON INJ 2 MG/ML 2 ML VIAL IV PRN ×2 (14:15→16:29)
[2019-05-11] MEDS ORDERED: ePHEDrine sulfate 50 MG/ML AMP IV PRN (14:15)
[2019-05-11] MEDS ORDERED: fentaNYL citrate 100 MCG/2 ML VIAL IV PRN (14:15)
[2019-05-11] MEDS ORDERED: DEXAMETHASONE SOD INJ 4 MG/ML VIAL ONE (14:49)
[2019-05-11] MEDS ORDERED: PROPOFOL IV EMULSION 10 MG/ML 20 ML VIAL IV ONE (14:49)
[2019-05-11] MEDS ORDERED: CEFAZOLIN 1000MG 1,000 MG/7.5 ML SYR IV ONE (14:59)
--- NOTE | 2019-05-11 15:15 | Post Operative Brief Note ---
PG Immediate Post Op with CF Date of Surgery May 11, 2019 Pre & Post Diagnosis Operation Date: 05/11/19 12:20 Pre-Op Diagnosis: acute appendicitis Post-Op Diagnosis: acute appendicitis Procedure Operation Date: 05/11/19 12:20 Actual Procedures p Laparoscopic Appendectomy(Not Applicable) - Kalpesh Newman MD Surgeon Kalpesh Newman MD Anaesthetic Technician b diane winters Estimated Blood Loss 10 Findings Consistent with Post-Op Diagnosis Specimens Specimen Description: a appendix
--- NOTE | 2019-05-11 15:25 | Operative Report ---
Post Operative Report Pre & Post Diagnosis Operation Date: 05/11/19 12:20 Pre-Op Diagnosis: acute appendicitis Post-Op Diagnosis: acute appendicitis Procedure Operation Date: 05/11/19 12:20 Actual Procedures p Laparoscopic Appendectomy(Not Applicable) - Kalpesh Newman MD The patient was brought into the operating theater after having voided in the preoperative area general endotracheal anesthesia administered systemic antibiotics given timeout was had patient identified made a small incision supraumbilically sufficient enough for a Veress needle followed by CO2 followed by 5 mm trocar point of entry inspected no injury identified direct visualization made a 5 mm right upper quadrant port with preemptive analgesic variable identified elevate the cecum where the appendix we can see the base and this is one partially retrocecal he this point we converted the 5 mm umbilical port to 11 mm by first enlarging the incision placing the insufflation to the right upper quadrant port using a Barbara clamp to dilate the 5 mm tract and 11 mm trocar placed under direct visualization and a 5 mm port we then placed in left lower quadrant direct visualization followed by the camera in that area the umbilical and right upper quadrant port were used as the access port dissection we created a window around the base of the appendix to the cecum there is little bleeding identified there was beyond we reopened posteriorly and we used a purple cartridge to separate the appendix from the cecum we then were able to identify small bleeder in the mesentery that we clipped then bluntly dissected out the rest of the appendix which in the retrocecal area had some fatty tissue attached to it and the mesoappendix was elevated at this point once we were able to get around it we used another's load of the blue ANTONIA and freed the appendix the appendix was placed in Endopouch and taken to the umbilical port level millimeter trocar was reinserted and inspection in any area revealed that the patient had a generalized oozing along the staple line and we cauterized this with a 25 and direct visualization all along but it would continue oozing off and on we irrigated the area multiple times finally we got to the point that we felt that it was sufficient enough that the bleeding was under control I did irrigate and place the patient reverse Trendelenburg and irrigated the pelvis side and it got around then to place a piece of omentum around the use appendiceal line of resection on the cecum individual trochars taken direct visualization unless the umbilical trocar fascial stitch 0 Vicryl was used for the umbilical area times two 4-0 Monocryl Steri-Strips applied procedure was tolerated well by the patient estimated blood loss 10 cc addendum the appendix was acutely inflamed and was nonruptured Lloyd WILLIAM was present throughout the procedure helped with the camera work retraction exposure and wound closure Surgeon Kalpesh Newman MD Nursing Faculty b diane william Estimated Blood Loss 10 Findings Consistent with Post-Op Diagnosis Specimens appendix Description of Procedure merda I attest to the content of the Intraoperative Record and any orders documented therein. Any exceptions are noted below.
[2019-05-11] MEDS ORDERED: NEOSTIGMINE METHYLSULFATE 5 MG/5 ML SYR ONE (15:34)
[2019-05-11] MEDS ORDERED: GLYCOPYRROLATE 0.2 MG/ML VIAL ONE (15:35)
--- NOTE | 2019-05-11 16:18 | Anesthesiology Progress Note ---
Date of Service May 11, 2019 Anesthesia Post Procedure Vital Signs Vital Signs: Temp Pulse Pulse Pulse Resp BP BP 05/11/19 16:05 36.4 C L 81 22 133/79 05/11/19 15:55 85 19 132/82 05/11/19 15:45 85 24 136/84 05/11/19 15:35 95 H 26 H 138/80 05/11/19 15:29 37.0 C 104 H 21 144/82 H 05/11/19 13:55 37.3 C 82 16 05/11/19 13:45 90 16 05/11/19 12:45 66 20 05/11/19 09:43 36.9 C 82 20 146/90 H BP Pulse Ox 05/11/19 16:05 99 05/11/19 15:55 99 05/11/19 15:45 99 05/11/19 15:35 99 05/11/19 15:29 99 05/11/19 13:55 114/75 99 05/11/19 13:45 145/80 H 99 05/11/19 12:45 130/75 05/11/19 09:43 100 Pain Intensity Right Lower Abdomen: Pain Intensity: 6 Transfer of Care Handoff Completed per policy Notes Mental Status: alert / awake / arousable Patient Amnestic to Procedure: Yes Nausea / Vomiting: adequately controlled Pain: adequately controlled Airway Patency, RR, SpO2: stable & adequate BP & HR: stable & adequate Hydration State: stable & adequate Anesthetic Complications: no major complications apparent
[2019-05-11] MEDS ORDERED: ACETAMINOPHEN 325 MG TAB PO PRN (16:29)
[2019-05-11] MEDS ORDERED: MoRPHine SULFATE 4 MG/ML 1 ML CARP\\VIAL IV PRN (16:29)
[2019-05-11] MEDS ORDERED: MoRPHine SULFATE 2 MG/ML CARP IV PRN (16:29)
[2019-05-11] MEDS ORDERED: OXYCODONE/ACETAMINOPHEN 5mg/325mg TAB PO PRN ×2 (16:29)
[2019-05-11] MEDS: LACTATED RINGER'S 1,000 ML IV SCH (18:01)
[2019-05-12 07:01] LABS: Hematocrit (blood only) 35.6 % (37-47); Hemoglobin 12.1 g/dL (12.0-16.0); Immature Granulocytes # (auto) 0.03 K/uL (0.00-0.02); Immature Granulocytes % (auto) 0.2 %; Lymphocytes % (auto) 7.2 %; Mean Corpuscular Volume 91.3 fL (80-100); Monocytes # (auto) 0.76 K/uL (0.11-0.59); Neutrophils # (auto) 13.39 K/uL (1.4-6.5); Neutrophils % (auto) 87.6 %; Platelet Count 241 K/uL (130-400); RDW Coefficient of Variation 13.7 % (11.5-14.5); RDW Standard Deviation 45.2 fL (36.4-46.3); White Blood Count 15.28 K/uL (4.8-10.8)
[2019-05-12 07:22] LABS: BUN Creatinine Ratio 15.9 (10-20); Calcium 8.4 mg/dl (8.5-10.1); Creatinine Clr Calc Pharmacy 107.2 ml/min; Est GFR (African American) 132.4; Est GFR (Non-African American) 114.2; Potassium 3.7 mmol/L (3.5-5.1)
[2019-05-12] MEDS: LACTATED RINGER'S 1,000 ML IV SCH (07:42)
--- NOTE | 2019-05-12 13:33 | Surgery Progress Note ---
Date of Service May 12, 2019 Assessment & Plan (1) Acute appendicitis: POD#1 laparoscopic appendectomy Patient feeling well and pain controlled VSS and patient voiding on her own surgical incisions c/d/i Diet advanced Will plan on discharge to home today Patient seen and examined with Dr. Newman Subjective Patient feeling well, pain well controlled, hoping to go home today. Physical Exam Physical Exam: awake/alert Gastrointestinal (Abdomen): Inspection/Auscultation: + abdominal surgical incision (c/d/i with steri-strips) Results & Data Vital Signs (Past 12 Hours) Vital Signs Temp Pulse Resp BP Pulse Ox 05/12/19 12:46 36.8 C 68 16 121/85 99 05/12/19 11:34 36.8 C 68 16 121/85 99 05/12/19 07:45 36.7 C 60 16 115/72 98 05/12/19 04:32 37.3 C 73 16 117/71 98 PG Care Time/CCT Total # of Minutes Spent Total Time Spent with Patient: Total time spent is greater than 50% in coordination of care (as documented) at patient's floor/unit and/or counseling patient: (1) Acute appendicitis Acute appendicitis type: with localized peritonitis Appendicitis abscess presence: without abscess Appendicitis gangrene presence: without gangrene Appendicitis perforation presence: without perforation Qualified Code(s): K35.30 - Acute appendicitis with localized peritonitis, without perforation or gangrene
--- NOTE | 2019-05-14 10:21 | Discharge Summary ---
Date of Service May 14, 2019 Principal Diagnosis Acute appendicitis Discharge Exam awake/alert/communicative Gastrointestinal (Abdomen) Inspection/Auscultation: + abdominal surgical incision (c/d/i with steristrips in place) Discharge Data Allergies Allergy/AdvReac Type Severity Reaction Status Date / Time alcohol Allergy Unknown Verified 05/11/19 10:31 Procedures Performed Operation Date: 05/11/19 12:20 Actual Procedures p Laparoscopic Appendectomy(Not Applicable) - Kalpesh Newman MD Ordered Studies 05/11/19 10:28 CT abd pelvis IV con only Stat Hospital Course (1) S/P laparoscopic appendectomy: This is a 43y F who presented to the [facility] ED on 05/11/19 with complaints of lower abdominal pain. Workup in the ED involved a CT abd/pelvis which revealed signs of early acute appendicitis. The patient was evaluated by general surgery and she was made NPO with IVF and given pre-op IV abx. The patient was subsequently taken to the OR and underwent a laparoscopic appendectomy with Dr. Newman. The patient tolerated the procedure well, see operative report for full details. Post op the patient remained admitted for overnight observation. Her diet was advanced from clear liquids to regular without issue. Pain was well managed and surgical incisions c/d/i. She was able to void on her own without issues. On (POD#1) 05/12/19 the patient was deemed stable for discharge to home. She was instructed to follow up in surgery clinic within 1-[address] Newman and discharge instructions were given to the patient. Total Time Total Time Spent Total Time Spent (In Minutes): 15 Discharge Plan Discharge Items Patient Disposition: Home - Self-Care Reason For Visit: RLQ PAIN Discharge Diagnosis: laparoscopic appendectomy Activity: Resume your previous activity Lifting: No more than 10 pounds Bathing Comment: you may shower starting today Exercise/Sports: Wait until after follow-up appointment Exercise Comment: light activity for 3 weeks Non-emergency contact: Surgeon Call non-emergency contact if: you have any medication questions, your symptoms worsen, your pain is not controlled, your pain is worsening, you have a fever, your temperature is above 101.5, your wound has increased redness, your wound has increased drainage and your wound pain has increased Follow-up/Referrals: Kalpesh Newman MD [Surgeon] - (Please call to schedule follow up within 2 weeks. You may call the office sooner if you have any questions/concerns.) Quoc Hill MD [Primary Care Provider] - Diet: Regular Addtl Attending Provider Instructions: You may take Tylenol or Ibuprofen for pain that does not require a narcotic. Pending Studies at Discharge: No Stand-Alone Forms: Call Back Authorization, My [facility], Opioid Pain Management Medications and DC Order Prescriptions: New oxycodone-acetaminophen [Percocet] 5-325 mg tablet 1 - 2 tab PO .every 4-6 hours PRN (Reason: pain, for initial therapy) Qty: 10 RF: 0 Discharge Orders: Discharge Order (Routine); Ordered 05/12/19 Ordered By: Nataly Mckinley/Other Patient Handouts: Surgery Prevent DVT After Admission Data Admit Date/Time: 05/11/19 15:28 Attending Provider: Kalpesh Newman Admit Provider: Kalpesh Newman Primary Care Provider: Quoc Hill Other Interventions: Discharge Summary Assessment (RN) Last Done: 05/12/19 12:46 DC Date/Time DO NOT enter until pt leaves facility: 05/12/19 16:41
== END 2019-05-12 16:41 | disposition home or self-care (01) ==
LOC: ED 09:37 → OR 13:46 → 3N 13:46
DX: K35.80 Unspecified acute appendicitis